=== PATIENT | male | born 1955 | race American Indian/Alaskan Native ===

== ENCOUNTER 2024-09-08 01:28 | Emergency (ER) | payer MEDICARE, BC ==
[2024-09-08] MEDS ORDERED: Sodium Chloride 0.9% 10 ML Syringe FLUSH PRN (01:46)
[2024-09-08] MEDS: Ketorolac 30 MG/ML SDV IVPUSH ONE ×2 (01:53→06:49)
[2024-09-08] MEDS: methylPREDNISolone Sodium Succinate 125 MG/2 ML SDV IVPUSH ONE (01:53)
[2024-09-08 02:01] LABS: BLOOD UREA NITROGEN,BUN 24 mg/dL (7-18); BUN/CREATININE RATIO 18.5 (9-20); CARBON DIOXIDE,CO2 27 mmol/L (21-32); CHLORIDE,CL 103 mmol/L (100-110); CREATININE 1.3 mg/dL (0.70-1.30); ESTIMATED GFR 60 mL/min (>60); GLUCOSE RANDOM 187 mg/dL (80-116); POTASSIUM,K 3.4 mmol/L (3.5-5.3); SODIUM,NA 140 mmol/L (135-145)
[2024-09-08 02:06] LABS: A/G RATIO 1.1; ALANINE AMINOTRANSFERASE,ALT 42 U/L (12-36); ALBUMIN 3.8 g/dL (3.2-4.6); ALKALINE PHOSPHATASE 101 IU/L (56-112); ASPARTATE AMNIOTRANSFERASE,AST 18 IU/L (5-25); BILIRUBIN TOTAL 0.7 mg/dL (0.1-1.3); PROTEIN TOTAL,TP 7.2 g/dL (6.0-8.0)
[2024-09-08 02:11] LABS: BASOPHILS PERCENT AUTO 0.3 % (0.3-3.8); EOSINOPHILS ABSOLUTE AUTO 0.2 x10-3/uL (0.0-0.6); EOSINOPHILS PERCENT AUTO 1.5 % (0.1-6.8); HEMATOCRIT 50.6 % (38.3-50.1); HEMOGLOBIN 17.5 g/dL (12.9-17.7); LYMPHOCYTES ABSOLUTE AUTO 1.3 x10-3/uL (0.5-4.5); LYMPHOCYTES PERCENT AUTO 11.9 % (15.8-45.3); MEAN CORPUSCULAR HEMOGLOBIN 31.8 pg (27.0-33.3); MEAN CORPUSCULAR HGB CONC 34.6 g/dL (28.7-35.3); MEAN CORPUSCULAR VOLUME 92.1 fL (80.8-98.7); MONOCYTES ABSOLUTE AUTO 0.6 x10-3/uL (0.0-1.2); MONOCYTES PERCENT AUTO 5.2 % (5.5-15.2); NEUTROPHILS ABSOLUTE AUTO 8.9 x10-3/uL (1.7-6.9); NEUTROPHILS PERCENT AUTO 81.1 % (40.3-71.8); PLATELET COUNT,PLT 143 x10(3)uL (117-477); RED BLOOD CELL COUNT 5.49 x10(6)uL (3.90-5.90); RED CELL DISTRIBUTION WIDTH 13.3 % (12.4-15.0)
[2024-09-08] MEDS: Sodium Chloride 0.9% 1,000 ML IV SCH (02:59)
[2024-09-08] MEDS: cefTRIAXone 1 GM Vial IVPUSH SCH (02:59)
[2024-09-08] MEDS: VANCOmycin 2 GM/400 ML 2 GM in Premix Bag 1 BAG IV ONE (03:00)
[2024-09-08 05:37] LABS: HEMATOCRIT 48.7 % (38.3-50.1); HEMOGLOBIN 16.6 g/dL (12.9-17.7); MEAN CORPUSCULAR HEMOGLOBIN 31.9 pg (27.0-33.3); MEAN CORPUSCULAR HGB CONC 34.1 g/dL (28.7-35.3); MEAN CORPUSCULAR VOLUME 93.4 fL (80.8-98.7); MEAN PLATELET VOLUME 9.9 fL (6.7-11.0); PLATELET COUNT,PLT 130 x10(3)uL (117-477); RED BLOOD CELL COUNT 5.21 x10(6)uL (3.90-5.90); RED CELL DISTRIBUTION WIDTH 13.5 % (12.4-15.0)
[2024-09-08 05:47] LABS: LACTIC ACID 0.9 mmol/L (0.4-2.0)
[2024-09-08 06:04] LABS: BAND PERCENT MAN 1 % (0-6); LYMPHOCYTES PERCENT MAN 7 % (13-37); MONOCYTES PERCENT MAN 1 % (4-12); SEG NEUTROPHILS PERCENT MAN 91 % (46-82)
== END 2024-09-08 07:00 | disposition home or self-care (01) ==
LOC: FB.ED 01:28
DX: L03.113 Cellulitis of right upper limb (principal); L03.114 Cellulitis of left upper limb; L08.0 Pyoderma; E11.9 Type 2 diabetes mellitus without complications; I10 Essential (primary) hypertension; Z90.49 Acquired absence of other specified parts of digestive tract
CPT/HCPCS: 36415; 80053; 83605; 85025; 86140; 87040; 96361; 96365; 96366; 96375; 96376; 99283; 99284; J0696; J1885; J2919; J3372; J7030